=== PATIENT | male | born 1975 ===

== ENCOUNTER 2020-11-07 12:21 | Emergency (ER) | payer SELFPAY ==
[2020-11-07 13:28] VITALS: BP 119/70
[2020-11-07] MEDS ORDERED: KETOROLAC 10 MG TAB PO ONE (14:08)
[2020-11-07] MEDS ORDERED: CYCLOBENZAPRINE 10 MG TAB PO ONE (14:08)
[2020-11-07] MEDS ORDERED: dexAMETHasone 20 MG/5 ML VIAL IM ONE (14:08)
--- NOTE | 2020-11-07 14:13 | Emergency Department Report ---
ED Back Pain/Injury HPI - General Chief Complaint: Back Pain/Injury Stated Complaint: BACK PAIN Time Seen by Provider: 11/07/20 14:08 Source: patient, per diem interpreter Mode of arrival: Wheelchair Limitations: Language Barrier - History of Present Illness Initial Comments: Indonesian interpretation by patient's friend, patient gave permission Patient is a 45-year-old male presents emergency room complaints of low back pain that began 2 days ago. He states that the pain radiates to his left buttock. He denies any acute fall or injury. He states that 2 years ago he did fall off a two-story building and had an injury at that time. He has pain with ambulation and movement. He denies any numbness, weakness, bowel or bladder incontinence, fever, vomiting, diarrhea, urinary symptoms. He denies any other past medical history. No allergies to medications. - Related Data Previous Rx's Medication Instructions Recorded Last Taken Type Menthol/Camphor [[place] 1 applicatio TP BID #18 oint...g. 11/07/20 Unknown Rx Ointment] Naproxen [EC-Naprosyn] 500 mg PO BID PRN #20 tablet. 11/07/20 Unknown Rx methOCARBAMOL [Robaxin TAB] 500 mg PO BID PRN #14 tab 11/07/20 Unknown Rx traMADoL [Ultram 50 MG tab] 50 mg PO Q8HR PRN #10 tablet 11/07/20 Unknown Rx Allergies Allergy/AdvReac Type Severity Reaction Status Date / Time No Known Allergies Allergy Unverified 11/07/20 13:25 ED Review of Systems ROS: Stated complaint: BACK PAIN Other details as noted in HPI Comment: All other systems reviewed and negative ED Past Medical Hx - Past Medical History Additional medical history: BACK SPASMS - Surgical History Past Surgical History?: No - Medications Home Medications: Home Medications Medication Instructions Recorded Confirmed Last Taken Type Menthol/Camphor [[place] 1 applicatio TP BID #18 oint...g. 11/07/20 Unknown Rx Ointment] Naproxen [EC-Naprosyn] 500 mg PO BID PRN #20 tablet. 11/07/20 Unknown Rx methOCARBAMOL [Robaxin TAB] 500 mg PO BID PRN #14 tab 11/07/20 Unknown Rx traMADoL [Ultram 50 MG tab] 50 mg PO Q8HR PRN #10 tablet 11/07/20 Unknown Rx ED Physical Exam - General Limitations: Language Barrier General appearance: alert, in no apparent distress - Head Head exam: Present: atraumatic, normocephalic - Eye Eye exam: Present: normal appearance - ENT ENT exam: Present: mucous membranes moist - Neck Neck exam: Present: normal inspection, full ROM. Absent: tenderness - Respiratory Respiratory exam: Present: normal lung sounds bilaterally. Absent: respiratory distress, wheezes, rales, rhonchi, stridor, chest wall tenderness, accessory muscle use, decreased breath sounds, prolonged expiratory - Cardiovascular Cardiovascular Exam: Present: regular rate, normal rhythm, normal heart sounds. Absent: systolic murmur, diastolic murmur, rubs, gallop - Back Exam Back exam: Present: normal inspection, full ROM, paraspinal tenderness (lumbar), vertebral tenderness (lumbar), other (no step offs, no deformities) - Neurological Exam Neurological exam: Present: alert, oriented X3, CN II-XII intact, normal gait. Absent: motor sensory deficit - Psychiatric Psychiatric exam: Present: normal affect, normal mood - Skin Skin exam: Present: warm, dry, intact ED Course Vital Signs 11/07/20 11/07/20 13:27 14:53 Temperature 99.7 F H Pulse Rate 89 Respiratory 16 22 Rate Blood Pressure 119/70 O2 Sat by Pulse 95 Oximetry ED Medical Decision Making - Radiology Data Radiology results: report reviewed CT LUMBAR SPINE: 11/07/2020 INDICATION / CLINICAL INFORMATION: lower back pain. COMPARISON: None available. FINDINGS: CT images of the lumbar spine were obtained. Images are evaluated in the axial, coronal, and sagittal planes. There is no definite evidence of acute abnormality. Mild right convex scoliosis is centered at the L3 level. There is a compression deformity of the L1 vertebral body, which is lost approximately 50% of its height anteriorly. The appearance is most consistent with chronic compression deformity, although consider this to be of indeterminate age. Lumbar vertebral body height is otherwise unremarkable. LEVEL BY LEVEL ANALYSIS: L5-S1: Unremarkable. L4-5: Mild symmetric diffuse disc bulging. L3-4: Mild symmetric diffuse disc bulging. L2-3: Unremarkable. L1-2: Unremarkable. PARASPINAL STRUCTURES: Unremarkable. IMPRESSION: L1 compression deformity, most likely chronic. Mild degenerative changes All CT scans at this location are performed using dose reduction to ALARA by means of automated exposure control. Signer Name: Moshe Velazquez MD Signed: 11/07/2020 4:32 PM Workstation Name: [id number] Transcribed By: SHANELL Dictated By: Moshe Velazquez MD Electronically Authenticated By: Moshe Velazquez MD Signed Date/Time: 11/07/20 1632 DD/ TD/TT: - Medical Decision Making Indonesian interpretation by patient's friend, patient gave permission Patient is a 45-year-old male presents emergency room complaints of low back pain that began 2 days ago. He states that the pain radiates to his left buttock. He denies any acute fall or injury. He states that 2 years ago he did fall off a two-story building and had an injury at that time. He has pain with ambulation and movement. He denies any numbness, weakness, bowel or bladder incontinence, fever, vomiting, diarrhea, urinary symptoms. He denies any other past medical history. No allergies to medications. VSS. on exam: lumbar and paraspinal lumbar ttp, no step offs, no deformities, neurovascularly intact. CT lumbar spine: L1 compression deformity, most likely chronic. Mild degenerative changes. Compression deformity is likely chronic in nature given patient's prior injury 2 years ago. Patient given medications while in the ED and symptoms significantly improved and he was feeling much better and ready to go home. Patient given prescription for naproxen, Robaxin, [place] balm ointment, tramadol. Advised patient Please take medication as prescribed. Do not drive or operate machinery while taking pain medication or muscle relaxer. May use ice pack, heating pad, rest, Epson salt bath. Follow-up with primary care doctor. Follow-up with a orthopedic/spine doctor. Return to emergency room for any worsening symptoms. Critical care attestation.: If time is entered above; I have spent that time in minutes in the direct care of this critically ill patient, excluding procedure time. ED Disposition Clinical Impression: Low back pain Qualifiers: Chronicity: acute Back pain laterality: bilateral Sciatica presence: with sciatica Sciatica laterality: sciatica of left side Qualified Code(s): M54.42 - Lumbago with sciatica, left side Disposition: TO HOME OR SELFCARE Is pt being admited?: No Does the pt Need Aspirin: No Condition: Stable Instructions: Acute Back Pain, Adult Additional Instructions: Please take medication as prescribed. Do not drive or operate machinery while taking pain medication or muscle relaxer. May use ice pack, heating pad, rest, Epson salt bath. Follow-up with primary care doctor. Follow-up with a orthopedic/spine doctor. Return to emergency room for any worsening symptoms. J.F. Villareal los medicamentos segn lo prescrito. No conduzca ni maneje maquinaria mientras est tomando analgsicos o relajantes musculares. Puede usar hielo, almohadilla trmica, reposo, ernst de jonas de Epson. Seguimiento con mdico de atencin primaria. Ayaz un seguimiento con un mdico ortopdico / de columna. Regrese a la maritza de emergencias si los sntomas empeoran. Prescriptions: Naproxen [EC-Naprosyn] 500 mg PO BID PRN #20 tablet. PRN Reason: pain methOCARBAMOL [Robaxin TAB] 500 mg PO BID PRN #14 tab PRN Reason: pain Menthol/Camphor [[place] Ointment] 1 applicatio TP BID #18 oint...g. traMADoL [Ultram 50 MG tab] 50 mg PO Q8HR PRN #10 tablet PRN Reason: Pain , Severe (7-10) Referrals: PRIMARY MD ALISE [Primary Care Provider] - 2-3 Days [facility] [Provider Group] - 2-3 Days ÓSCAR MERLOS II, MD [Staff Physician] - 2-3 Days ARIANNE SIERRA MD [Staff Physician] - 2-[address] [facility] [Provider Group] - 2-3 Days Time of Disposition: 16:52 Print Language: THAI
--- NOTE | 2020-11-07 16:37 | Cat Scan Report ---
CT LUMBAR SPINE: 11/07/2020 INDICATION / CLINICAL INFORMATION: lower back pain. COMPARISON: None available. FINDINGS: CT images of the lumbar spine were obtained. Images are evaluated in the axial, coronal, and sagittal planes. There is no definite evidence of acute abnormality. Mild right convex scoliosis is centered at the L3 level. There is a compression deformity of the L1 vertebral body, which is lost approximately 50% of its hei ght anteriorly. The appearance is most consistent with chronic compression deformity, although consid er this to be of indeterminate age. Lumbar vertebral body height is otherwise unremarkable. LEVEL BY LEVEL ANALYSIS: L5-S1: Unremarkable. L4-5: Mild symmetric diffuse disc bulging. L3-4: Mild symmetric diffuse disc bulging. L2-3: Unremarkable. L1-2: Unremarkable. PARASPINAL STRUCTURES: Unremarkable. IMPRESSION: L1 compression deformity, most likely chronic. Mild degenerative changes All CT scans at this location are performed using dose reduction to ALARA by means of automated expos ure control. Signer Name: Moshe Velazquez MD Signed: 11/07/2020 4:32 PM Workstation Name: [id number]
== END 2020-11-07 18:11 | disposition home or self-care (01) ==
LOC: ED 12:21
DX: M54.5 Low back pain (principal); Z79.899 Other long term (current) drug therapy
CPT/HCPCS: 72131; 96372; 99284; J1100